=== PATIENT | male | born 1965 | race Caucasian/White ===

== ENCOUNTER 2017-01-19 13:13 | Emergency (ER) | payer OTHER ==
[2017-01-19 15:08] LABS: HEMOGLOBIN 15.8 gm/dl (14.0-17.5); RED BLOOD COUNT 5.11 M/UL (4.20-5.50)
[2017-01-19 15:28] LABS: BUN/CREATININE RATIO 30 (0-10)
== END 2017-01-19 17:26 | disposition home or self-care (01) ==
LOC: ER1 13:13
PROVIDERS: Radiology Radiation Oncology
DX: S83.92XA Sprain of unspecified site of left knee, initial encounter (principal); L03.031 Cellulitis of right toe; E11.628 Type 2 diabetes mellitus with other skin complications; J44.9 Chronic obstructive pulmonary disease, unspecified; F17.200 Nicotine dependence, unspecified, uncomplicated; W19.XXXA Unspecified fall, initial encounter
CPT/HCPCS: 36415; 73564; 73630; 80048; 85025; 94664; 96361; 96365; 96375; 99284; J1335; J1815; J2270; J2405; J2930; J7030; J7050